=== PATIENT | male | born 1955 | race Caucasian/White ===

== ENCOUNTER → 2022-08-14 | Outpatient (CLI) | payer MEDICARE, OTHER ==
[~2022-08-14] MED LIST: ALBU90OI INH; AMOCLA875 PO; CHLO25 PO; CLIN300 PO; DOC250 PO; GLYB2.5 PO; HYDACE5 PO; HYDR1TAB94 PO; LORA10ER PO; METF500 PO; NEURONTIN300 MG PO; ONDA4ODT MM; OXAYDO5 M1 PO; PROBIOTIC1 EA13 PO; Percocet 5-3251 EACH PO; RXHYDACE PO; RXONDA4ODT MM; RXPROM25 PO; SULTRIDS PO
[2022-08-14 19:37] LABS: BASOPHILS ABSOLUTE AUTO 0.07 K/mm3 (0.00-0.23); BASOPHILS PERCENT AUTO 1 % (0-2); EOSINOPHILS ABSOLUTE AUTO 0.18 K/mm3 (0.00-0.68); EOSINOPHILS PERCENT AUTO 3 % (0-6); Hemoglobin 14.1 g/dL (13.5-17.5); IMMATURE GRAN ABSOLUTE AUTO 0.01 K/mm3 (0.00-0.10); IMMATURE GRAN PERCENT AUTO 0 % (0-1); LYMPHOCYTES ABSOLUTE AUTO 1.45 K/mm3 (0.84-5.20); LYMPHOCYTES PERCENT AUTO 26 % (21-46); MONOCYTES ABSOLUTE AUTO 0.47 K/mm3 (0.16-1.47); MONOCYTES PERCENT AUTO 8 % (4-13); Mean Corpuscular HGB 30.5 pg (26.0-34.0); Mean Corpuscular HGB Conc 34.4 g/dL (31.5-36.5); Mean Corpuscular Volume 89 fL (80-100); Mean Platelet Volume 10.8 fL (9.1-12.4); NEUTROPHILS ABSOLUTE AUTO 3.41 K/mm3 (1.96-9.15); NEUTROPHILS PERCENT AUTO 61 % (41-73); Platelet Count 159 K/mm3 (150-400); RDW Coefficient Variation 12.4 % (11.7-14.2); RDW Standard Deviation 40.5 fL (35.1-46.3); Red Blood Cell Count 4.62 M/mm3 (4.30-5.90); White Blood Cell Count 5.59 K/mm3 (4.00-11.30)
[2022-08-14 20:07] LABS: Alanine Aminotransfer (ALT/SGP 30 U/L (12-78); Albumin, Blood 3.7 g/dL (3.4-5.0); Albumin/Globulin Ratio 1.1 (0.8-1.8); Alk Phos 72 U/L (50-136); Anion Gap 0 mmol/L (6-16); Aspartate Aminotrans (AST/SGOT 18 U/L (12-37); Bilirubin, Total 0.6 mg/dL (0.1-1.0); Blood Urea Nitrogen 16 mg/dL (8-24); Bun/Creatinine Ratio 19.3 (12.0-20.0); C-REACTIVE PROTEIN, EXT RANGE <0.290 mg/dL (0.000-0.300); CHOL/HDL RATIO 4.4; CO2, Blood 31 mmol/L (21-32); Calcium, Blood 9.6 mg/dL (8.5-10.1); Chloride, Blood 105 mmol/L (98-108); Cholesterol 163 mg/dL (50-200); Creatinine, Blood 0.83 mg/dL (0.60-1.20); Globulin, Blood 3.3 g/dL (2.2-4.0); Glomerular Filtration Rate 95 (60-); Glucose, Blood 159 mg/dL (70-99); HDL Cholesterol 37 mg/dL (>39); LDL/HDL RATIO 2.9; Lactate Dehydrogenase (Ld),Bld 125 U/L (100-240); Low Density Lipoprotein Chol 106 mg/dL (0-110); Potassium, Blood 4.3 mmol/L (3.5-5.5); Sodium, Blood 136 mmol/L (136-145); Thyroid Stimulating Hormone 0.604 uIU/mL (0.360-4.800); Triglycerides 99 mg/dL (30-160); Very Low Density Lipoprot Chol 19 mg/dL (6-32)
[2022-08-18 16:11] LABS: A/G RATIO 1.1 (0.7-1.7); ALBUMIN 3.4 g/dL (2.9-4.4); ALPHA-1-GLOBULIN 0.3 g/dL (0.0-0.4); ALPHA-2-GLOBULIN 0.7 g/dL (0.4-1.0); BETA GLOBULIN 1.1 g/dL (0.7-1.3); GAMMA GLOBULIN 0.8 g/dL (0.4-1.8); M-SPIKE Not Observed g/dL (Not Observed); PROTEIN, TOTAL, SERUM 6.4 g/dL (6.0-8.5)
== END | disposition home or self-care (01) ==
LOC: LAB SHORT 17:05
PROVIDERS: Family Medicine
DX: E11.9 Type 2 diabetes mellitus without complications (principal); D64.89 Other specified anemias; M54.17 Radiculopathy, lumbosacral region; R63.4 Abnormal weight loss; Z79.899 Other long term (current) drug therapy
CPT/HCPCS: 80053; 80061; 82607; 82746; 83010; 83036; 83615; 84165; 84443; 85025; 85651; 86140

== ENCOUNTER 2022-08-18 11:47 | Day surgery (SDC) | payer MEDICARE, OTHER ==
[~2022-08-18] VITALS: Ht 175.3 cm; Wt 64.0 kg
[2022-08-18 15:00] VITALS: BP 135/101
== END 2022-08-18 14:59 | disposition home or self-care (01) ==
LOC: ORSCSDS 11:47
PROVIDERS: Surgery
PROC: 0DB48ZX Excision of Esophagogastric Junction, Via Natural or Artificial Opening Endoscopic, Diagnostic (ICD-10-PCS; principal; 2022-08-18 13:00)
PROC: 0DBK8ZX Excision of Ascending Colon, Via Natural or Artificial Opening Endoscopic, Diagnostic (ICD-10-PCS; principal; 2022-08-18 13:00)
PROC: 0DBM8ZX Excision of Descending Colon, Via Natural or Artificial Opening Endoscopic, Diagnostic (ICD-10-PCS; principal; 2022-08-18 13:00)
PROC: 0DB68ZX Excision of Stomach, Via Natural or Artificial Opening Endoscopic, Diagnostic (ICD-10-PCS; principal; 2022-08-18 13:00)
PROC: 0DB58ZX Excision of Esophagus, Via Natural or Artificial Opening Endoscopic, Diagnostic (ICD-10-PCS; principal; 2022-08-18 13:00)
DX: R10.32 Left lower quadrant pain (principal); K21.9 Gastro-esophageal reflux disease without esophagitis; R11.0 Nausea; D12.2 Benign neoplasm of ascending colon; D12.4 Benign neoplasm of descending colon; K57.30 Diverticulosis of large intestine without perforation or abscess without bleeding; R68.81 Early satiety; R63.4 Abnormal weight loss; E11.9 Type 2 diabetes mellitus without complications; Z79.84 Long term (current) use of oral hypoglycemic drugs; F17.210 Nicotine dependence, cigarettes, uncomplicated
CPT/HCPCS: 82947; 88305; J0330; J0461; J2001; J2405; J2704; J7120; Q9968

== ENCOUNTER 2022-09-16 15:45 | Observation (INO) | payer MEDICARE, OTHER ==
[~2022-09-16] VITALS: Ht 175.3 cm; Wt 59.0 kg
[~2022-09-16 15:45] MED LIST changes: +Reglan10 MG PO
[2022-09-16 16:20] LABS: BASOPHILS ABSOLUTE AUTO 0.05 K/mm3 (0.00-0.23); BASOPHILS PERCENT AUTO 1 % (0-2); EOSINOPHILS ABSOLUTE AUTO 0.03 K/mm3 (0.00-0.68); EOSINOPHILS PERCENT AUTO 1 % (0-6); Hematocrit 44.2 % (37.0-53.0); Hemoglobin 15.7 g/dL (13.5-17.5); IMMATURE GRAN ABSOLUTE AUTO 0.01 K/mm3 (0.00-0.10); IMMATURE GRAN PERCENT AUTO 0 % (0-1); LYMPHOCYTES ABSOLUTE AUTO 1.09 K/mm3 (0.84-5.20); LYMPHOCYTES PERCENT AUTO 20 % (21-46); MONOCYTES PERCENT AUTO 7 % (4-13); Mean Corpuscular HGB 30.8 pg (26.0-34.0); Mean Corpuscular HGB Conc 35.5 g/dL (31.5-36.5); Mean Corpuscular Volume 87 fL (80-100); Mean Platelet Volume 10.8 fL (9.1-12.4); NEUTROPHILS ABSOLUTE AUTO 3.93 K/mm3 (1.96-9.15); NEUTROPHILS PERCENT AUTO 71 % (41-73); Platelet Count 141 K/mm3 (150-400); RDW Coefficient Variation 12.1 % (11.7-14.2); RDW Standard Deviation 38.9 fL (35.1-46.3); Red Blood Cell Count 5.09 M/mm3 (4.30-5.90); White Blood Cell Count 5.51 K/mm3 (4.00-11.30)
[2022-09-16 16:28] LABS: Albumin, Blood 3.8 g/dL (3.4-5.0); Bilirubin, Total 1.1 mg/dL (0.1-1.0); Bun/Creatinine Ratio 15.1 (12.0-20.0); Calcium, Blood 9.8 mg/dL (8.5-10.1); Creatinine, Blood 0.6 mg/dL (0.60-1.20); Globulin, Blood 3.7 g/dL (2.2-4.0); Potassium, Blood 3.8 mmol/L (3.5-5.5); Total Protein, Blood 7.5 g/dL (6.4-8.2)
[2022-09-16] MEDS ORDERED: OXYC10TA19 PO (16:57)
[2022-09-16] MEDS ORDERED: REMERON1510 PO (16:57)
[2022-09-16] MEDS ORDERED: OMEPRAZOLE DR 20 MG PO (16:57)
[2022-09-16] MEDS ORDERED: NEURONTIN300 MG PO (16:58)
[2022-09-16] MEDS ORDERED: OXYC5 PO (16:58)
[2022-09-16] MEDS ORDERED: Vitamin B-12100 MCG PO (16:59)
[2022-09-16] MEDS ORDERED: METF500 PO (22:52)
[2022-09-16] MEDS ORDERED: GLYB2.5 PO (22:53)
[2022-09-16 23:30] VITALS: BP 189/105
--- NOTE | 2022-09-17 04:29 | NUR ---
PT ARRIVED ON UNIT EARLY IN SHIFT. ADMITTED FOR N/V. COMPLAINTS OF CHRONIC LOWER BACK PAIN, SOMEWHAT WELL MANAGED ON CURRENT MEDICATION REGIMEN. PT IS 1 PERSON ASSIST TRANSFER TO BATHROOM/BEDSIDE COMMODE. HAS NOT BEEN OUT OF BED SINCE TRANSFERRING FROM WHEELCHAIR UPON ARRIVAL. REGLAN Q 6 NOT ADEQUATELY MANAGING N/V. RECEIVED ORDER FOR ZOFRAN Q 6 TO SUPPLEMENT. WORKING WELL THUS FAR. AOX4, PLEASANT, COOPERATIVE WITH CARE. PT REPORTS DECREASED SENSATION IN BLE. STRENGTH IS INTACT BILATERALLY BUT BLE ARE NOTABLY WEAKER THAN BUE ON ASSESSMENT. TELE IN PLACE. RUNNING TACHY WITH HTN THROUGHOUT SHIFT LIKELY DUE IN LARGE PART TO COMBINATION OF PAIN AND N/V. PRN HYDRALAZINE GIVEN EARLY IN SHIFT. PT HAS NOT BEEN ABLE TO SLEEP MUCH DUE TO THESE SYMPTOMS ALTHOUGH IS SPORADICALLY ABLE TO RELAX IN BED AFTER MEDICATION ADMINISTRATION. IV IN RAC INFUSING NS WELL WITHOUT DIFFICULTY. BED LOCKED IN LOWEST POSITION. CALL LIGHT LEFT WITHIN REACH.
[2022-09-17 06:37] LABS: BASOPHILS ABSOLUTE AUTO 0.02 K/mm3 (0.00-0.23); BASOPHILS PERCENT AUTO 0 % (0-2); EOSINOPHILS ABSOLUTE AUTO 0.03 K/mm3 (0.00-0.68); EOSINOPHILS PERCENT AUTO 1 % (0-6); Hemoglobin 14.2 g/dL (13.5-17.5); IMMATURE GRAN ABSOLUTE AUTO 0.02 K/mm3 (0.00-0.10); IMMATURE GRAN PERCENT AUTO 0 % (0-1); LYMPHOCYTES ABSOLUTE AUTO 1.06 K/mm3 (0.84-5.20); LYMPHOCYTES PERCENT AUTO 18 % (21-46); MONOCYTES ABSOLUTE AUTO 0.51 K/mm3 (0.16-1.47); MONOCYTES PERCENT AUTO 9 % (4-13); Mean Corpuscular HGB 30.9 pg (26.0-34.0); Mean Corpuscular HGB Conc 36.4 g/dL (31.5-36.5); Mean Corpuscular Volume 85 fL (80-100); Mean Platelet Volume 10.6 fL (9.1-12.4); NEUTROPHILS ABSOLUTE AUTO 4.18 K/mm3 (1.96-9.15); NEUTROPHILS PERCENT AUTO 72 % (41-73); Platelet Count 128 K/mm3 (150-400); RDW Coefficient Variation 12.3 % (11.7-14.2); Red Blood Cell Count 4.59 M/mm3 (4.30-5.90); White Blood Cell Count 5.82 K/mm3 (4.00-11.30)
[2022-09-17 06:55] LABS: Albumin, Blood 3.6 g/dL (3.4-5.0); Albumin/Globulin Ratio 1.2 (0.8-1.8); Calcium, Blood 9.4 mg/dL (8.5-10.1); Creatinine, Blood 0.57 mg/dL (0.60-1.20); Potassium, Blood 3.5 mmol/L (3.5-5.5); Total Protein, Blood 6.6 g/dL (6.4-8.2)
[2022-09-17 07:27] VITALS: BP 164/87
[2022-09-17] MEDS ORDERED: METO10 PO (13:59)
--- NOTE | 2022-09-17 17:55 | NUR ---
DISCHARGE SUMMARY PATIENT IS ALERT AND ORIENTED. PATIENT HAD ELEVATED HR WHEN AMBULATING THE HALLS. THIS RN ORDERED IV METOPROLOL AND PO METOPROLOL WHICH WERE EFFECTIVE. PATIENT IS BEING DISCHARGED HOME. PATIENT WAS WALKED IN HALLS TO EVALUATE THE HR OF PATIENT WHICH NEVER REACHED 100.
== END 2022-09-17 17:54 | disposition home or self-care (01) ==
LOC: ER 15:45 → MEDS 15:46 → ENPENDDIS 09-17 17:12 → MEDS 09-17 17:54
PROVIDERS: Physician Assistant; Student in an Organized Health Care Education/Training Program; ADMIT Internal Medicine
DX: R11.2 Nausea with vomiting, unspecified (principal); R00.0 Tachycardia, unspecified; R53.1 Weakness; F12.20 Cannabis dependence, uncomplicated; I10 Essential (primary) hypertension; F17.210 Nicotine dependence, cigarettes, uncomplicated; Z90.49 Acquired absence of other specified parts of digestive tract; Z88.5 Allergy status to narcotic agent; Z66 Do not resuscitate
CPT/HCPCS: 36415; 74177; 80053; 83690; 85025; 96374-59; 96375; 99285-25; A9270; C9113; J0360; J1170; J1650; J1790; J2405; J2550; J2765; J3010; J7030; J7120; Q9967